=== PATIENT | male | born 1935 | race African-American/Black ===

== ENCOUNTER 2019-05-10 08:58 | Inpatient (IN) | payer MEDICARE, OTHER ==
[~2019-05-10] VITALS: Ht 177.8 cm; Wt 97.5 kg
--- NOTE | 2019-05-10 09:20 | NUR ---
Current BP level is high. Dr Augustin verbally ordered to maintain systolic BP at 220-120 range ("permissive hypertension"). Patient denies any pains or aches@this time.
--- NOTE | 2019-05-10 09:22 | NUR ---
PT DOES NOT REMEMBER NAMES AND DOSAGES OF HIS HOME MEDICATION.
--- NOTE | 2019-05-10 09:26 | NUR ---
CODE STROKE WAS CALLED BY DR MUÑOZ. TELESTROKE INTELLIGENCE MANAGER TERRELL WAS CONTACTED [phone] MUÑOZ DISCUSSED PT's CASE WIT NEUROLOGIST DOCTOR RICHARD.
[2019-05-10] MEDS ORDERED: SWABABLE VALVE TRANSFER SET EA MC ONE (09:36)
[2019-05-10] MEDS ORDERED: IV NORMAL SALINE 250 ML IV ONE (09:36)
[2019-05-10] MEDS ORDERED: IOHEXOL 350 100 ML INFUS..BTL ONE (09:36)
[2019-05-10] MEDS ORDERED: ONDANSETRON HCL 4 MG TABLET PO ONE (09:45)
[2019-05-10 09:49] LABS: BASOPHILS % (AUTO) 0.8 % (0.0-2.0); EOSINOPHILS # (AUTO) 0.4 K/uL (0.0-0.7); EOSINOPHILS % (AUTO) 5.8 % (0.0-7.0); HEMATOCRIT 36.4 % (36.7-47.1); HEMOGLOBIN 12.2 g/dL (12.5-16.3); LYMPHOCYTES # (AUTO) 1.6 K/uL (20.0-40.0); LYMPHOCYTES % (AUTO) 24.1 % (20.5-51.5); MEAN CORPUSCULAR HEMOGLOBIN 31.2 uug (23.8-33.4); MEAN CORPUSCULAR HGB CONC 33 g/dL (32.5-36.3); MEAN CORPUSCULAR VOLUME 93.5 fL (73.0-96.2); MONOCYTES # (AUTO) 0.4 K/uL (2.0-10.0); MONOCYTES % (AUTO) 6.3 % (0.0-11.0); NEUTROPHILS # (AUTO) 4.1 K/uL (1.8-8.9); PLATELET COUNT (AUTO) 188 K/uL (152-348); RED BLOOD CELL COUNT(AUTO) 3.89 MIL/uL (4.06-5.63); WHITE BLOOD COUNT (AUTO) 6.5 K/uL (3.6-10.2)
[2019-05-10 09:55] LABS: CARBON DIOXIDE 27 mmol/L (21-32); CHLORIDE 105 mmol/L (98-107); CREATININE 1.4 mg/dL (0.6-1.3); GLUCOSE 110 mg/dL (74-106); UREA NITROGEN, BLOOD 19 mg/dL (7-18)
[2019-05-10] MEDS ORDERED: ONDANSETRON 4 MG/2 ML VIAL ONE (09:59)
[2019-05-10] MEDS ORDERED: ONDANSETRON 4 MG/2 ML VIAL IV ONE (10:00)
[2019-05-10 10:06] LABS: ALANINE AMINOTRANSFERASE 15 U/L (16-63); ALKALINE PHOSPHATASE 85 U/L (50-136); ASPARTATE AMINOTRANSFERASE 18 U/L (15-37); BILIRUBIN,TOTAL 0.3 mg/dL (0.2-1.0); TOTAL PROTEIN, SERUM 8.2 g/dL (6.4-8.2)
--- NOTE | 2019-05-10 10:51 | NUR ---
Patient is back from radiology dept. Patient says that he feels much better, decreased dizziness expressed, denies nausea, patient's respiration:easy, patient is calm, NAD.
--- NOTE | 2019-05-10 11:03 | NUR ---
Patient ambulated to bathroom with slow steady gait with no ataxia seen. Patient denies dizziness@this time.
--- NOTE | 2019-05-10 11:21 | NUR ---
TEXTED DR. EMMANUEL FOR MRI APPROVAL.
--- NOTE | 2019-05-10 11:25 | NUR ---
DR. EMMANUEL TEXT BACK, ON HOLD FOR NOW, DR EMMANUEL WILL LET US KNOW,
--- NOTE | 2019-05-10 11:50 | NUR ---
[facility] TICKET [id number] PICKUP [phone]
--- NOTE | 2019-05-10 12:41 | NUR ---
Patient is resting comfortably on gurney while using his cellphone, NAD
--- NOTE | 2019-05-10 12:46 | NUR ---
Patient ambulated to bathroom with brisk steady gait, denies dizziness & nausea@this time.
--- NOTE | 2019-05-10 12:50 | NUR ---
BP levels are still elevated. is aware. "Permissive hypertension" per Dr Augustin. Patient left ER for MRI in stable condition. Hands off report given to FREDERICK Boss, unit#[id number].
--- NOTE | 2019-05-10 14:41 | NUR ---
Patient came back in same condition, AOx4, denies nausea or dizziness. Patient is eating hot lunch cardiac tray with good appetite. Patient will go to 3rd floor as soon as possible.
--- NOTE | 2019-05-10 15:09 | NUR ---
Patient ate 100% of the lunch tray. Patient is now ready to go to 3rd floor.
[2019-05-10] MEDS ORDERED: ASPIRIN 325 MG TABLET PO ONE (15:45)
[2019-05-10] MEDS ORDERED: ONDANSETRON 4 MG/2 ML VIAL IV PRN (15:45)
[2019-05-10] MEDS ORDERED: HYDROCODONE/APAP 5-325MG TABLET PO PRN (15:45)
[2019-05-10] MEDS ORDERED: TEMAZEPAM 15 MG CAPSULE PO PRN (15:45)
[2019-05-10] MEDS ORDERED: ACETAMINOPHEN 325 MG TABLET PO PRN (15:45)
[2019-05-10 15:50] VITALS: BP 142/90
--- NOTE | 2019-05-10 19:45 | NUR ---
PATIENT ALERT ORIENTED, NO SOB NO CHEST PAIN, TELE MONITOR SINUS RHYTHM WITH 1ST DEGREE BLOCK, PATIENT HAS NO DIZZINESS, NO HEADACHES, NO VOMITING NOTED, CONT TO MONITOR.
--- NOTE | 2019-05-10 19:45 | NUR ---
PATIENT ALERT ORIENTED NO SOB NO CHEST PAIN NOTED, TELE MONITOR. SINUS RHYTHM WITH 1ST DEGREE BLOCK. AT Addendum: 05/11/19 at 0254 by RADHA FIGUEROA RN PATIENT ALERT ORIENTED NO SOB NO CHEST PAIN NOTED, TELE MONITOR SINUS RHYTHM WITH 1ST DEGREE BLOCK. AT. CHARTING IN ERROR.
[2019-05-10 20:27] VITALS: BP 116/61
[2019-05-10] MEDS ORDERED: DOCUSATE SODIUM 250 MG CAPSULE PO SCH (21:00)
[2019-05-10] MEDS: DOCUSATE SODIUM 100 MG CAPSULE PO SCH (21:49)
[2019-05-11] VITALS (7 sets, daily range): BP systolic 126–172; BP diastolic 76–102
[2019-05-11] MEDS: PANTOPRAZOLE SODIUM 40 MG TABLET.DR PO SCH (06:04)
--- NOTE | 2019-05-11 06:29 | NUR ---
PATIENT SLEPT MOST OF THE NIGHT, NO SOB NO CHEST PAIN, TELE MONITOR SINUS RHYTHM WITH LEFT BUNDLE BRANCH BLOCK. PATIENT HAS NO COMPLAIN OF PAIN, NO NAUSEA, NO VOMITING NOTED, NO ADVERSE CHANGES NOTED, CONT TO MONITOR. Addendum: 05/11/19 at 0639 by RADHA FIGUEROA RN PATIENT SLEPT MOST OF THE NIGHT, NO SOB NO CHEST PAIN, TELE MONITOR SINUS RHYTHM WITH LEFT BBB. PATIENT HAS NO COMPLAIN OF PAIN, NO NAUSEA, NO VOMITING NOTED, NO ADVERSE CHANGES NOTED, CONT TO MONITOR. CHARTING IN ERROR.
[2019-05-11] MEDS ORDERED: TEMAZEPAM 7.5 MG CAPSULE PO PRN (06:30)
--- NOTE | 2019-05-11 06:39 | NUR ---
PATIENT SLEPT MOST OF THE NIGHT, NO SOB NO CHEST PAIN, PATIENT HAS NO EPISODE OF NAUSE, DIZZINESS, NO HEADACHES, CONT TO MONITOR.
[2019-05-11 06:52] LABS: BASOPHILS % (AUTO) 0.6 % (0.0-2.0); EOSINOPHILS # (AUTO) 0.3 K/uL (0.0-0.7); EOSINOPHILS % (AUTO) 5.7 % (0.0-7.0); HEMATOCRIT 34.9 % (36.7-47.1); HEMOGLOBIN 11.6 g/dL (12.5-16.3); LYMPHOCYTES # (AUTO) 1.3 K/uL (20.0-40.0); LYMPHOCYTES % (AUTO) 23.3 % (20.5-51.5); MEAN CORPUSCULAR HEMOGLOBIN 31.1 uug (23.8-33.4); MEAN CORPUSCULAR HGB CONC 33 g/dL (32.5-36.3); MEAN CORPUSCULAR VOLUME 93.7 fL (73.0-96.2); MONOCYTES # (AUTO) 0.4 K/uL (2.0-10.0); MONOCYTES % (AUTO) 6.5 % (0.0-11.0); NEUTROPHILS # (AUTO) 3.7 K/uL (1.8-8.9); NEUTROPHILS % (AUTO) 63.9 % (38.5-71.5); PLATELET COUNT (AUTO) 184 K/uL (152-348); RED BLOOD CELL COUNT(AUTO) 3.72 MIL/uL (4.06-5.63); WHITE BLOOD COUNT (AUTO) 5.8 K/uL (3.6-10.2)
[2019-05-11 07:00] LABS: THYROID STIMULATING HORMONE 0.533 mIU/mL (0.358-3.740)
[2019-05-11 07:31] LABS: ALANINE AMINOTRANSFERASE 17 U/L (16-63); ALKALINE PHOSPHATASE 73 U/L (50-136); ASPARTATE AMINOTRANSFERASE 13 U/L (15-37); BILIRUBIN,TOTAL 0.2 mg/dL (0.2-1.0); CARBON DIOXIDE 29 mmol/L (21-32); CHLORIDE 104 mmol/L (98-107); CHOLESTEROL 179 mg/dL (<200); CREATININE 1.4 mg/dL (0.6-1.3); GLUCOSE 91 mg/dL (74-106); HDL CHOLESTEROL 50 mg/dL (40-60); PHOSPHOROUS 3.7 mg/dL (2.5-4.9); POTASSIUM 4.2 mmol/L (3.5-5.1); TOTAL PROTEIN, SERUM 7.1 g/dL (6.4-8.2); TRIGLYCERIDES 53 MG/DL (30-150); UREA NITROGEN, BLOOD 23 mg/dL (7-18)
--- NOTE | 2019-05-11 08:10 | NUR ---
PATIENT IS AWAKE ALERT AND ORIENTED DENIES PAIN OR DISCOMFORTS AT THIS TIME APPETITE WAS GOOD FOR BREAKFAST ALL NEEDS ATTENDED CALLL LIGHTS AND PERSONAL BELONGINGS ARE WITHIIN EASY REACH MADE COMFORTABLE AND WILL CONTINUE TO OBSERVE.
[2019-05-11] MEDS: ASPIRIN 81 MG TAB.CHEW PO SCH (09:02)
--- NOTE | 2019-05-11 14:00 | NUR ---
PATIENT SEEN BY DR BUTTS WITH NO NEW ORDERS AT THIS TIME
--- NOTE | 2019-05-11 18:00 | NUR ---
RESTING DENIES DISCOMFORTS NO C/O NOTED AT THIS TIME.
--- NOTE | 2019-05-11 19:00 | NUR ---
PATIENT ALERT ORIENTED, NO SOB NO CHEST PAIN, TELE MONITOR SINUS RHYTHM 1ST DEGRE BLOCK, PATIENT HAS NO COMPLAIN OF PAIN, RESTING IN BED, BP STABLE, CONT TO MONITOR.
[2019-05-11] MEDS: DOCUSATE SODIUM 100 MG CAPSULE PO SCH (20:46)
[2019-05-11] MEDS: ATORVASTATIN 10 MG TABLET PO SCH (20:46)
[2019-05-11] MEDS: hydrALAZINE HCL 25 MG TABLET PO PRN (22:19)
--- NOTE | 2019-05-11 22:19 | NUR ---
PATIENT COMPLAIN OF NAUSEA BUT NO VOMITING. PATIENT BP ELEVATED 175/102, COMPLAIN OF SLIGHT DIZZINESS, INSTRUCTED PATIENT TO STAY IN BED, GIVEN HYDRALAZINE 25MG PO ORDERED FOR ELEVATED BP, WILL MEDICATED ALSO FOR NAUSEA. PATIENT ALERT ORIENTED, TELE MONITOR SINUS RHYTHM AT 60BPM, KEPT IN BED, CONT TO MONITOR.
--- NOTE | 2019-05-11 23:00 | NUR ---
PATIENT ALERT ORIENTED, RECHECK BP 165/98, ZOFRAN WAS EFFECTIVE NO FURTHER NAUSEA FEELING NOTED, DIZZINESS WAS SUBSIDE, NO S/S OF DISTRESS, CONT TO MONITOR.
[2019-05-12] VITALS: BP 165/98
--- NOTE | 2019-05-12 00:27 | NUR ---
PATIENT ALERT ORIENTED, NO SOB NO CHEST PAIN, RECHECK BP 140/82, NO NAUSEA FEELING, WENT BACK TO SLEEP. CONT TO MONITOR.
[2019-05-12 00:29] VITALS: BP 140/82
[2019-05-12 04:05] VITALS: BP 125/79
[2019-05-12] MEDS: PANTOPRAZOLE SODIUM 40 MG TABLET.DR PO SCH (06:18)
--- NOTE | 2019-05-12 06:39 | NUR ---
PATIENT ALERT ORIENTED NO SOB NO CHEST PAIN, BP STABLE 125/79 HR 63, NO FURTHER EPISODES OF HIGH BLOOD PRESSURE, CONT TO MONITOR.
--- NOTE | 2019-05-12 07:40 | NUR ---
PATIENT IS IN BED AWAKE ALERT AND VERBALLY RESPONSIVE STATED FEELS BETTER AT THIS TIME ON ROOM AIR WITH NO SHORTNESS OF BREATH CALL LIGHTS AND PERSONAL BELONGINGS PLACED WITHIN EASY REACH NOT IN DISTRESS AT THIS TIME WILL CONTINUE TO OBSERVE.
[2019-05-12] MEDS: ASPIRIN 81 MG TAB.CHEW PO SCH (08:34)
--- NOTE | 2019-05-12 10:19 | NUR ---
NEW ORDER FOR DIRECT MARKETING SPECIALIST EVALUATION NOTED.
[2019-05-12 11:29] VITALS: BP 149/85
--- NOTE | 2019-05-12 12:54 | NUR ---
PATIENT IS RESTING IN ROOM DENIES DISCOMFORTS AMBULATORY TO DESIRED DESTINATIONS DENIES DISCOMFORTS AT THIS TIME.
[2019-05-12 15:50] VITALS: BP 154/88
--- NOTE | 2019-05-12 15:58 | NUR ---
Out Of Town Collection Clerk consultation requested: SW met with this patient today. Patient was in his hospital room, in bed, awake, alert, receptive to meeting with this SW. Patient is an 83 year old -[place] male, cooperative, pleasant, oriented x 4. Patient lives alone, and prior to this hospitalization, patient was independent with all his ADL's and IADL's. Patient drives. Patient stated that he was on his way to the gym on Sunday05/10/2019, when he began to feel dizzy and nauseas, and even vomited once before coming to the ED. Patient stated that he was given the diagnosis of TIA. Patient maintained appropriate eye contact, mood and affect was WNL and at times smiled when conversing with this SW. Patient has 2 daughters, Evans who lives in [place] [phone], and Chay who lives in [place] [phone]. Patient stated that he has spoken with his daughters since his hospitalization, but has not informed them that he is in the hospital. SW asked patient if there was anyone that SW could contact for the patient, and patient stated that he was "fine" and did not feel the need to notify anyone about his hospitalization. SW administered the PHQ-9, and patient expressed not having any changes in mood or behavior, stating with a smile "I have not had any changes in my mood for 83 years". Patient's score on the PHQ-9 is a 0. No further SS interventions needed at this time, however protective services social worker is available for the patient, if needed.
--- NOTE | 2019-05-12 16:00 | NUR ---
PATIENT STATED GETS MEDICATION FROM [facility] AND [facility] AND THE LIST OF THE MEDICATIONS FROM BOTH PHARMACY DID NOT CORRESPOND STATEDTHAT HE PREFERS TO GET HIS MEDS FROM [facility] [place] DR CARIAS AWARE .
--- NOTE | 2019-05-12 16:15 | NUR ---
DR WAY NEUROLOGIST HERE TO SEE PATIENT WITH NO NEW ORDERS AT THIS TIME.
--- NOTE | 2019-05-12 19:30 | NUR ---
PATIENT ALERT ORIENTED, NO SO NO CHEST PAIN, TELE MONITOR SINUS RHYTHM 1ST DEGREE BLOCK, BP STABLE AT THIS TIME. CONT TO MONITOR.
[2019-05-12 20:00] VITALS: BP 131/86
[2019-05-12] MEDS: DOCUSATE SODIUM 100 MG CAPSULE PO SCH (21:00)
[2019-05-12] MEDS ORDERED: VALSARTAN 160 MG TABLET PO SCH (21:00)
[2019-05-12] MEDS: ATORVASTATIN 10 MG TABLET PO SCH (21:40)
[2019-05-12] MEDS: VALSARTAN 80 MG TABLET PO SCH (21:41)
[2019-05-13] VITALS: BP 144/94
[2019-05-13 04:00] VITALS: BP 144/89
--- NOTE | 2019-05-13 06:43 | NUR ---
PATIENT ALERT ORIENTED, NO EPISODE OF ELEVATED BP, BP STABLE, NO DIZZINESS, CONT TO MONITOR.
[2019-05-13] MEDS: PANTOPRAZOLE SODIUM 40 MG TABLET.DR PO SCH (07:05)
--- NOTE | 2019-05-13 07:29 | NUR ---
RECEIVED ASLEEP EASILY AROUSABLE ON ROUNDS NO S/S OF PAIN OR DISCOMFORTS AT THIS TIME REMAIN ON TELE MONITRING ORDEREDREMAIN WITH SR WITH FIRST DEGREE AV BLOCK CALL LIGHTS AND PERSONAL BELONGINGS ARE WITHIN EASY REACH WILL CONTINUE TO OBSERVE.
[2019-05-13] MEDS: VALSARTAN 80 MG TABLET PO SCH (08:34)
[2019-05-13] MEDS: ASPIRIN 81 MG TAB.CHEW PO SCH (08:34)
--- NOTE | 2019-05-13 09:54 | NUR ---
PATIENT SEEN AND EXAMINED BY DR PINEDO WITH ORDER TO DISCHARGE HOME TODAY PATIENT AWARE AND STATED WILL BE READY TO LEAVE AFTER LUNCH.
--- NOTE | 2019-05-13 10:30 | NUR ---
BLOOD PRESSURE AT THIS TIME IS 168/95 HR 61 PATIEN MEDICATED WITH HIS PRN HYDRALAZINE ORDERED PRN DR PINEOD NOTIFIED STATED WILL ADD NORVASC TO HIS MED PROFILE AND TO START IT TODAY IF BLOOD PRESSURE IS STILL HIGH AFTER ONE HOUR.DENIES HEADACHE ASSYMPTOMATIC AT THIS TIME.
[2019-05-13] MEDS: hydrALAZINE HCL 25 MG TABLET PO PRN (10:32)
[2019-05-13] MEDS ORDERED: AMLODIPINE 5 MG TABLET PO SCH (10:45)
[2019-05-13 11:31] VITALS: BP 137/89
--- NOTE | 2019-05-13 11:55 | NUR ---
BLOOD PRESSURE AT THIS TIME IS 137/89 CALLED AND SPO[address] PINEDO AND ASKED HER IF I SHOULD GIVE PATIENT THE NORVASC EVEN THOUGH I GAVE HIM THE HYDRALAZINE ABOUT 1030 AND SHE SAID YES TO GIVE HIM THE NORVASC AND HAVE HIM WAIT UNTIL LATE AFTERNOON AND CHECK HIS BLOOD PRESSURE IF ITS NORMAL THEN PATIENT CAN BE DISCHARGED HOME.
--- NOTE | 2019-05-13 11:58 | NUR ---
NORVASC GIVEN ORDERED AND PATIENT INSTRUCTED THAT HIS BLOOD PRESSURE WILL BE RECHECKED ABOUT LATE AFTERNOON AND IF ITS NORMAL HE WILL BE DISCHARGED HOME AND HE EXPRESSED UNDERSTANDING.
--- NOTE | 2019-05-13 14:47 | NUR ---
BLOOD PRESSURE AT THIS TIMEIS 121/74 STED FEEL GOODPATIENT IS BEING PREPPED FOR DISCHARGE.
--- NOTE | 2019-05-13 15:00 | NUR ---
PATIENT DISCHARGED WITH DISCHARGE INSTRUCTIONS AND PATIENT INSTRUCTED TO CIVIL GEOTECHNICAL ENGINEER HIS MEDICATIONS FROM [facility] AND HE EXPRESSED UNDERSTANDING.ASSISTED PATIENT TO HIS CAR PARKED IN THE [place] PARKING LOT.
[2019-05-13 15:33] VITALS: BP 121/74
== END 2019-05-13 15:00 | disposition home or self-care (01) | DRG 69 ==
LOC: ER 08:58 → TELE3 14:42
PROVIDERS: ADMIT Internal Medicine; ATTEND Internal Medicine
DX: G45.9 Transient cerebral ischemic attack, unspecified (principal); N17.0 Acute kidney failure with tubular necrosis; I16.1 Hypertensive emergency; I13.10 Hypertensive heart and chronic kidney disease without heart failure, with stage 1 through stage 4 chronic kidney disease, or unspecified chronic kidney disease; N18.9 Chronic kidney disease, unspecified; Z86.718 Personal history of other venous thrombosis and embolism; E86.9 Volume depletion, unspecified; E03.9 Hypothyroidism, unspecified; E66.9 Obesity, unspecified; Z68.30 Body mass index [BMI] 30.0-30.9, adult; D64.9 Anemia, unspecified; E78.5 Hyperlipidemia, unspecified; J32.9 Chronic sinusitis, unspecified; R73.03 Prediabetes; I11.9 Hypertensive heart disease without heart failure; I66.09 Occlusion and stenosis of unspecified middle cerebral artery; M17.0 Bilateral primary osteoarthritis of knee; Z96.652 Presence of left artificial knee joint; S72.011D Unspecified intracapsular fracture of right femur, subsequent encounter for closed fracture with routine healing; X58.XXXD Exposure to other specified factors, subsequent encounter; E21.0 Primary hyperparathyroidism
CPT/HCPCS: 36415; 70030-TC; 70450; 70496; 70551; 71045; 83735; 84100; 84443; 85025; 85610; 93005; 93307; 93880; A4663; G0378; J2405; J7050; Q9967